=== PATIENT | male | born 1995 | race Caucasian/White ===

== ENCOUNTER 2017-04-25 17:12 | Emergency (ER) | payer BC ==
[2017-04-25 17:21] VITALS: BP 142/84
--- NOTE | 2017-04-25 17:30 | UC ---
Lower Extremity/Ankle HPI - HPI Summary HPI Summary: 22 YEAR OLD MALE PRESENTS WITH LEFT POSTERIOR ANKLE INFECTED BLISTER. - History of Current Complaint Chief Complaint: [employer] Stated Complaint: INFECTION LEFT FOOT Time Seen by Provider: 04/25/17 17:23 Hx Obtained From: Patient Onset/Duration: Sudden Onset Severity Initially: Moderate Severity Currently: Moderate Pain Scale Used: 0-10 Numeric - 5 Aggravating Factor(s): Standing Alleviating Factor(s): Rest - Allergies/Home Medications Allergies/Adverse Reactions: Allergies Allergy/AdvReac Type Severity Reaction Status Date / Time Penicillins Allergy Hives Verified 04/25/17 17:21 PMH/Surg Hx/FS Hx/Imm Hx Previously Healthy: Yes - Surgical History Surgical History: None - Social History Alcohol Use: Rare Substance Use Type: None Smoking Status (MU): Never Smoked Tobacco Review of Systems Constitutional: Negative Skin: Other - LEFT ANKLE INFECTED BLISTER Eyes: Negative ENT: Negative Respiratory: Negative Cardiovascular: Negative Gastrointestinal: Negative Genitourinary: Negative Motor: Negative Neurovascular: Negative Musculoskeletal: Negative Neurological: Negative Psychological: Negative All Other Systems Reviewed And Are Negative: Yes Physical Exam Triage Information Reviewed: Yes Appearance: Well-Appearing Vital Signs: Initial Vital Signs Temp 37.3 C 04/25/17 17:15 Pulse 85 04/25/17 17:15 Resp 16 04/25/17 17:15 BP 142/84 04/25/17 17:15 Pulse Ox 98 04/25/17 17:15 Vital Signs Reviewed: Yes Eye Exam: Normal ENT Exam: Normal Dental Exam: Normal Neck exam: Normal Neck: Positive: 1 Respiratory Exam: Normal Cardiovascular Exam: Normal Abdominal Exam: Normal Musculoskeletal Exam: Normal Neurological Exam: Normal Psychological Exam: Normal Skin: Positive: Other - LEFT ANKLE POSTERIOR INFECTED BLISTER Lower Extremity Course/Dx - Differential Dx/Diagnosis Provider Diagnoses: LEFT POSTERIOR ANKLE INFECTED BLISTER Discharge - Discharge Plan Condition: Stable Disposition: HOME Prescriptions: DOXYcycline CAP(*) [DOXYcycline 100MG CAP(*)] 100 mg PO BID #20 cap Patient Education Materials: Blister (ED) Forms: *School Release Referrals: Non Staff,Doctor [Primary Care Provider] - Additional Instructions: [facility] REFERRAL
--- NOTE | 2017-04-25 22:21 | ED ---
Progress - Progress Note Progress Note: NO CHANGE. STAPGovind (+). PATIENT ON DOXYCYCLINE. Course/Dx - Diagnoses Provider Diagnoses: Blister
== END 2017-04-25 17:48 | disposition home or self-care (01) ==
LOC: UCCORT 17:12
DX: M00.072 Staphylococcal arthritis, left ankle and foot (principal); B95.8 Unspecified staphylococcus as the cause of diseases classified elsewhere; Z88.0 Allergy status to penicillin
CPT/HCPCS: 87070; 87077; 87185; 87186; 87205; 87640; 87641; 99202; G0463

== ENCOUNTER 2017-04-26 16:54 | Emergency (ER) | payer BC ==
[2017-04-26 17:07] VITALS: BP 122/75
--- NOTE | 2017-04-26 17:11 | UC ---
Skin Complaint HPI - HPI Summary HPI Summary: 22 YEAR OLD MALE PRESENTS FOR WOUND/DRESSING CHECK OF LEFT HEEL BLISTER. - History of Current Complaint Chief Complaint: [employer] Time Seen by Provider: 04/26/17 17:10 Stated Complaint: LEFT HEEL RE CHECK SEEN LAST NIGHT Hx Obtained From: Patient Onset/Duration: Sudden Onset Skin Exposure Onset/Duration: Minutes Ago Onset Severity: Moderate Current Severity: Moderate Pain Scale Used: 0-10 Numeric - 5 - Allergy/Home Medications Allergies/Adverse Reactions: Allergies Allergy/AdvReac Type Severity Reaction Status Date / Time Penicillins Allergy Hives Verified 04/26/17 17:04 Review of Systems Constitutional: Negative Skin: Other - LEFT HEEL BLISTER Eyes: Negative ENT: Negative Respiratory: Negative Cardiovascular: Negative Gastrointestinal: Negative Genitourinary: Negative Motor: Negative Neurovascular: Negative Musculoskeletal: Negative Neurological: Negative Psychological: Negative All Other Systems Reviewed And Are Negative: Yes PMH/Surg Hx/FS Hx/Imm Hx - Surgical History Surgical History: None - Social History Alcohol Use: Rare Substance Use Type: None Smoking Status (MU): Never Smoked Tobacco - Immunization History Most Recent Influenza Vaccination: Not the Season Physical Exam Triage Information Reviewed: Yes Vital Signs: Initial Vital Signs Temp 36.9 C 04/26/17 17:03 Pulse 72 04/26/17 17:03 Resp 16 04/26/17 17:03 BP 122/75 04/26/17 17:03 Pulse Ox 100 04/26/17 17:03 Eye Exam: Normal ENT Exam: Normal Dental Exam: Normal Neck exam: Normal Neck: Positive: 1 Respiratory Exam: Normal Cardiovascular Exam: Normal Abdominal Exam: Normal Musculoskeletal Exam: Normal Neurological Exam: Normal Psychological Exam: Normal Skin: Positive: Other - LEFT HEEL BLISTER Course/Dx - Diagnoses Provider Diagnoses: LEFT HEEL BLISTER DRESSING CHECK Discharge - Discharge Plan Condition: Stable Disposition: HOME Patient Education Materials: Blister (ED) Referrals: Non Staff,Doctor [Primary Care Provider] -
[2017-04-26] MEDS ORDERED: Lidocaine/Epineph/Tetraca SOL* (LET solution) 4 ML BTL TOPICAL ONE (17:12)
[2017-04-26] MEDS ORDERED: Lidocaine/Epineph/Tetraca SOL* (LET solution) 4 ML BTL ONE (17:13)
== END 2017-04-26 17:40 | disposition home or self-care (01) ==
LOC: UCCORT 16:54
DX: Z51.89 Encounter for other specified aftercare (principal); Z48.00 Encounter for change or removal of nonsurgical wound dressing
CPT/HCPCS: 99212; G0463